=== PATIENT | female | born 1970 | race Caucasian/White ===

== ENCOUNTER 2019-12-24 13:35 | Emergency (ER) | payer SELFPAY ==
[2019-12-24 14:23] VITALS: BP 149/69
[2019-12-24] MEDS ORDERED: KETOROLAC TROMETHAMINE 60 MG/2 ML SDV IM ONE (14:49)
--- NOTE | 2019-12-24 14:51 | ER Document Report ---
HPI - HPI Time Seen by Provider: 12/24/19 14:45 Notes: 49-year-old female patient presenting to the emergency department chief complaint of right wrist pain. Patient reports she had a tendon repair about 6 years ago. She states she has had no new injury but is having numbness and tingling into her hand. She states she usually has numbness and tingling in her hand but usually only last for 30 minutes and this time it has lasted for 2 hours. She has not taken anything for her symptoms. - ROS Systems Reviewed and Negative: Yes All other systems reviewed and negative - MUSCULOSKELETAL Musculoskeletal: REPORTS: Extremity pain - R wrist Past Medical History - General Information source: Patient - Social History Smoking Status: Never Smoker Frequency of alcohol use: None Drug Abuse: None Family History: Other - denies - Medical History Medical History: Negative Surgical Hx: Negative - Immunizations Immunizations up to date: Yes Vertical Provider Document - CONSTITUTIONAL Notes: PHYSICAL EXAMINATION: GENERAL: Well-appearing, well-nourished and in no acute distress. HEAD: Atraumatic, normocephalic. EYES: Pupils equal round extraocular movements intact, conjunctiva are normal. ENT: Nares patent NECK: Normal range of motion LUNGS: No respiratory distress Musculoskeletal: Normal range of motion to right wrist. Old incision site noted, well healed. No obvious deformity, erythema, swelling. Strong radial pulse. Cap refill less than 3 seconds. No snuffbox tenderness. NEUROLOGICAL: Normal speech, normal gait. PSYCH: Normal mood, normal affect. SKIN: Warm, Dry, normal turgor, no rashes or lesions noted. Course - Re-evaluation Re-evalutation: Wrist X-Ray 12/24/19 14:48 IMPRESSION: No acute osseous abnormality. If there is pain at the anatomic snuff box, recommend conservative management and follow-up imaging in 7 to 10 days as scaphoid fractures may initially be radiographically occult. Normal flexion and extension, unlikely tendon injury. Patient does have a history of a tendon repair to this area. I will have her follow-up with our hand specialist. Patient agreeable to this plan. - Vital Signs Vital signs: Temp Pulse Resp BP Pulse Ox 98.2 F 83 20 149/69 H 96 12/24/19 14:21 12/24/19 14:21 12/24/19 14:21 12/24/19 14:21 12/24/19 14:21 Discharge - Discharge Clinical Impression: Right wrist pain Condition: Stable Disposition: HOME, SELF-CARE Additional Instructions: Your x-ray did not show any concerning findings. Please take Tylenol or ibuprofen for your pain. Your physical exam does not suggest any evidence of a tendon rupture. Please follow-up with Dr. Rachel the hand surgeon for further evaluation. Referrals: NAN RACHEL, [ACTIVE STAFF] - Follow up as needed
--- NOTE | 2019-12-24 15:56 | RADIOLOGY REPORT (SQ) ---
EXAM DESCRIPTION: WRIST RIGHT 3 VIEWS IMAGES COMPLETED DATE/TIME: 12/24/2019 3:26 pm REASON FOR STUDY: wrist pain hx of tendon repair COMPARISON: None. NUMBER OF VIEWS: Three views. TECHNIQUE: AP, lateral, and oblique radiographic images acquired of the right wrist. LIMITATIONS: None. FINDINGS: MINERALIZATION: Normal. BONES: No acute fracture or dislocation. No worrisome bone lesions. Normal alignment. No significant osteophytes. JOINTS: No erosions. No ayla-articular osteopenia. No chondrocalcinosis. SOFT TISSUES: No swelling. No calcifications. OTHER: No other significant finding. IMPRESSION: No acute osseous abnormality. If there is pain at the anatomic snuff box, recommend con servative management and follow-up imaging in 7 to 10 days as scaphoid fractures may initially be rad iographically occult. TECHNICAL DOCUMENTATION: JOB ID: [id number] 2010 [employer]- All Rights Reserved Reading location - IP/workstation name: [email or web address]
[2019-12-24] MEDS ORDERED: KETOROLAC TROMETHAMINE 60 MG/2 ML SDV ONE (18:05)
== END 2019-12-24 18:10 | disposition home or self-care (01) ==
LOC: ER 13:35
DX: M25.531 Pain in right wrist (principal); R20.0 Anesthesia of skin; R20.2 Paresthesia of skin; Z98.890 Other specified postprocedural states
CPT/HCPCS: 99284; 96372; 73110; J1885

== ENCOUNTER → 2020-02-12 | Outpatient (CLI) | payer OTHER ==
--- NOTE | 2020-02-12 12:08 | RADIOLOGY REPORT (SQ) ---
EXAM DESCRIPTION: ANKLE LEFT COMPLETE IMAGES COMPLETED DATE/TIME: 02/12/2020 9:13 am REASON FOR STUDY: SPRAIN OF UNSPECIFIED LIGAMENT OF LEFT ANKLE, INIT ENCNTR S93.402A SPRAIN OF UNSP ECIFIED LIGAMENT OF LEFT ANKLE, INIT . Patient stepped into a drain they will with medial and latera l ankle pain. COMPARISON: None. NUMBER OF VIEWS: Three views. TECHNIQUE: AP, lateral, and oblique radiographic images acquired of the left ankle. LIMITATIONS: None. FINDINGS: MINERALIZATION: Normal. BONES: There is no acute fracture or cortical disruption. Possible tiny avulsion injury at the later al aspect of the talus measuring less than 1 mm. Small plantar calcaneal spur. JOINTS: Small anterior joint effusion. No intra-articular loose body. SOFT TISSUES: Soft tissue swelling medial and lateral joint space. OTHER: No other significant finding. IMPRESSION: No acute displaced fracture or dislocation of the left ankle. Possible tiny avulsion in jury at the lateral talus. Small ankle joint effusion. Soft tissue swelling. TECHNICAL DOCUMENTATION: JOB ID: [id number] [employer]- All Rights Reserved Reading location - IP/workstation name: [email or web address]
== END ==
LOC: OD 09:46
PROVIDERS: ATTEND Family Medicine
DX: S93.402A Sprain of unspecified ligament of left ankle, initial encounter (principal); X58.XXXA Exposure to other specified factors, initial encounter; M25.472 Effusion, left ankle